=== PATIENT | male | born 1935 | race Caucasian/White ===

== ENCOUNTER → 2017-05-19 | Outpatient (CLI) | payer MEDICARE, OTHER ==
[~2017-05-19] MED LIST: ACY30T TP; ALB0.5 INH; ALB18R INH; ALBU8.5H IH; ALBUDR INH; ASP325 PO; ASPIRIN; ATOR10TA65 PO; ATOR20TA22 PO; ATOR20TA65 PO; AZIT-1 PO; AZIT-17 PO; CALC-852 PO; CEFU250 PO; CEPH500C24 PO; DIPH0.5D12 IM; DUL100/5PT INH; FISH OIL1 CAP PO; FLOMAX; FLU IM; FLUT16SP19 NS; FLUT50DI3 IH; GUAI600T57 PO; GUALA600 PO; HCTZ; HCTZ25 PO; HYDR-2966 PO; IPRA14.76 IH; IPRA3AMP21 IH; IPRA4AER IH; LANS15CA38 PO; LEV25 PO; LEVO-85 PO; LEVO250T55 PO; LEVO25TA57 PO; LEVO25TA61 PO; LEVO50TA86 PO; LISI5TAB25 PO; MOME8.8H2 INH; MULT-1 PO; OMEG-11 PO; PANT40TA65 PO; PRED-314 PO; PRED20TA6 PO; TAM4 PO; TAMS0.4C70 PO; TIO18R INH
--- NOTE | 2017-05-19 15:31 | RADIOLOGY IMAGING REPORT ---
[place] [facility] [place] Alexandr Barclay : 1935 MR: [id number] V: [id number] EXAM DATE: ORDERING PHYSICIAN: JAMESON WALSH TECHNOLOGIST: Location: [facility] Patient: Alexandr Barclay : 1935 Visit/Account:[id number] Date of Sevice: 05/19/2017 Exam type: CHEST PA AND LAT History: COPD, cough since Thursday Comparison: October 03, 2015. Findings: There is hyperinflation of the lung waggoner. There is no evidence of focal infiltrates, pleural effus ions or pulmonary edema.. The cardiac silhouette is normal in size. There is moderate ectasia the t horacic aorta. IMPRESSION: 1. Hyperinflation lung waggoner although no evidence of acute-appearing pulmonary consolidation Report Dictated By: Daly Rahman MD at 05/19/2017 3:25 PM Report E-Signed By: Daly Rahman MD at 05/19/2017 3:26 PM WSN:[email or web address]
== END ==
LOC: RAD 14:21
PROVIDERS: ATTEND Internal Medicine
DX: R91.8 Other nonspecific abnormal finding of lung field (principal)
CPT/HCPCS: 71046

== ENCOUNTER → 2017-06-26 | Outpatient (CLI) | payer MEDICARE, OTHER ==
--- NOTE | 2017-06-26 13:37 | RADIOLOGY IMAGING REPORT ---
FACILITY: [facility] - [place] PATIENT NAME: Alexandr Barclay : 1935 MR: [id number] V: [id number] EXAM DATE: ORDERING PHYSICIAN: JAMESON WALSH TECHNOLOGIST: Location: [facility] [place] Patient: Alexandr Barclay : 1935 Visit/Account:[id number] Date of Sevice: 06/26/2017 KIDNEYS EXAMINATION: Renal ultrasound. History: Chronic kidney disease COMPARISON STUDIES: FINDINGS: Kidneys: Right kidney- 9.9 x 6.3 x 4.7 cm Left kidney- 12.7 x 5.7 x 4.8 cm Uniform and symmetric blood flow in each kidney by Doppler ultrasound. Hydronephrosis: none There is a probably lobular 6.1 x 2.7 x 2.9 cm cyst upper pole of the right kidney. There is additio nal cortical cyst mid right kidney measuring 1.6 centers in diameter.. There is a 6.5 cm cyst upper pole the left kidney. Bladder: Prevoid volume 287 mL. Post void residual 6 mL. Bilateral ureteral jets Abdominal aorta and IVC: Aorta and IVC are patent by Doppler ultrasound. IMPRESSION: Bilateral renal cysts as described above Report Dictated By: Daly Rahman MD at 06/26/2017 1:30 PM Report E-Signed By: Daly Rahman MD at 06/26/2017 1:34 PM WSN:[email or web address]
== END ==
LOC: US 04:40
PROVIDERS: ATTEND Internal Medicine
DX: N28.1 Cyst of kidney, acquired (principal)
CPT/HCPCS: 36415; 76705; 82040; 82247; 82310; 82374; 82435; 82565; 82947; 84075; 84132; 84155; 84295; 84450; 84460; 84520

== ENCOUNTER → 2017-07-16 | Outpatient (CLI) | payer MEDICARE, OTHER ==
--- NOTE | 2017-07-20 08:45 | RADIOLOGY IMAGING REPORT ---
FACILITY: [facility] - [place] PATIENT NAME: PAYAL SILVERMAN : [id number] MR: [id number] V: [id number] EXAM DATE: [id number] ORDERING PHYSICIAN: LYN RUBI TECHNOLOGIST: Jeannie Ferrera EXAMINATION:TWO-DIMENSIONAL ECHOCARDIOGRAPH REASON:History of Hypertension, Chronic Kidney Disease and Edema. 2D Measurements (normal values in centimeters) LV endLV endRV endVent.LV PostAorticLeftPercent DiastolicSystolicDiastolicSeptumWallRootAtriumShortening (3.5-5.7)(0.9-2.6)(0.6-1.1)(0.6-1.1)(2.0-3.7)(1.9-4.0)(25-35%) [id number]% STROKE VOLUME: 78mL ESTIMATED EJECTION FRACTION: 67% on average. PARASTERNAL LONG AXIS: The view was somewhat techniquely difficult but overall left ventricular systolic function appears to be normal. The aortic valve and mitral valve both appear to open normally. Color examination of the valves reveals only a trace of mitral insufficiency and a trace of aortic insufficiency present. PARASTERNAL SHORT AXIS: Overall left ventricular function again appears to be within normal ranges. The aortic valve is trileaflet in configuration and appears to open normally. The pulmonic valve appears to open well. Color examination of the pulmonic valve was unremarkable. Color examination of the aortic valve was unremarkable in this view. APICAL FOUR AND TWO CHAMBER: Again left ventricular systolic function does appear to be within normal ranges. Right ventricle also appears to contract normally and the TAPSE is measured at 2.2. Left atrial and right atrial volumes are measured within normal ranges of 20 and 21ml/mt2. The aortic valve area and mitral valve area both measure within normal ranges at 3.3 and 3.3cm/2 respectively. Mild amount of tricuspid insufficiency is noted. Tricuspid regurgitation Vmax measured 3.45mt/2. Probable U station valve is noted in the right atrium. The right ventricle is mild to moderately enlarged. SUBCOSTAL VIEW: No pericardial effusion was noted. No atrioseptal or ventriculoseptal defects were appreciated. There does appear to be some hypokinesis along the basilar portion of the inter ventricular septum as measured by strain measurements. Doppler examination of the mitral valve in diastole does reveal the A wave > E wave. OVERALL IMPRESSION: 1. Normal left ventricular ejection fraction of 67% with a Grade 1 decrease in diastolic function. There appears to be some hypokinesis along the basilar portion of the septal and anterior walton. These walton were not akinetic. 2. Moderate right ventricular enlargement with the other chambers sizes being normal. 3. Trace of mitral insufficiency and aortic insufficiency present. No stenosis of the valves was noted. 4. A mild amount of tricuspid insufficiency is noted with estimated right ventricular systolic pressures of 51mm Hg which does include an estimated right atrial pressure of 3mm Hg indicating moderate pulmonary hypertension and increase right ventricular systolic pressures. Dictated by: Ciara Johnson M.D. on 07/16/2017 at 17:01 Transcribed by: UMA on 07/17/2017 at 13:20 Approved by: Ciara Johnson M.D. on 07/20/2017 at 8:43 [facility]
== END ==
LOC: US 01:10
PROVIDERS: ATTEND Internal Medicine Nephrology
DX: Q21.0 Ventricular septal defect (principal); I50.30 Unspecified diastolic (congestive) heart failure; I34.0 Nonrheumatic mitral (valve) insufficiency; I35.1 Nonrheumatic aortic (valve) insufficiency; I07.1 Rheumatic tricuspid insufficiency; I27.20 Pulmonary hypertension, unspecified; I12.9 Hypertensive chronic kidney disease with stage 1 through stage 4 chronic kidney disease, or unspecified chronic kidney disease; N18.3 Chronic kidney disease, stage 3 (moderate); R60.0 Localized edema; J43.8 Other emphysema
CPT/HCPCS: 36415; 82310; 82374; 82435; 82550; 82565; 82570; 82947; 83970; 84100; 84132; 84156; 84295; 84520; 93306

== ENCOUNTER → 2017-11-25 | Outpatient (CLI) | payer MEDICARE, OTHER ==
[~2017-11-25] MED LIST changes: +IPRA3AMP10 IH; -IPRA3AMP21 IH
[2017-11-25 13:03] LABS: PLATELET COUNT, AUTOMATED 167 K/uL (150-450)
== END ==
LOC: LAB 12:45
PROVIDERS: ATTEND Internal Medicine Nephrology
DX: I12.9 Hypertensive chronic kidney disease with stage 1 through stage 4 chronic kidney disease, or unspecified chronic kidney disease (principal); N18.3 Chronic kidney disease, stage 3 (moderate)
CPT/HCPCS: 36415; 81001; 82040; 82310; 82374; 82435; 82565; 82947; 84100; 84132; 84295; 84520; 85025

== ENCOUNTER 2018-08-12 09:00 | Outpatient (RCR) | payer MEDICARE, OTHER ==
[~2018-08-12 09:00] MED LIST changes: -DIPH0.5D12 IM; +DIPH0.5S2 IM
== END 2018-08-30 ==
LOC: CARD 09:00
PROVIDERS: ATTEND Internal Medicine
DX: J43.9 Emphysema, unspecified (principal)
CPT/HCPCS: G0424 ×20

== ENCOUNTER → 2018-11-01 | Outpatient (CLI) | payer MEDICARE, OTHER ==
[~2018-11-01] MED LIST changes: +BENZ200C15 PO; +FURO-45 PO; +PRED-420 PO; +TAMS0.4C25 PO
[2018-11-01 15:50] LABS: PLATELET COUNT, AUTOMATED 300 K/uL (150-450)
== END ==
LOC: LAB 15:11
PROVIDERS: ATTEND Internal Medicine
DX: R06.00 Dyspnea, unspecified (principal); J44.1 Chronic obstructive pulmonary disease with (acute) exacerbation; I10 Essential (primary) hypertension; R60.9 Edema, unspecified
CPT/HCPCS: 36415; 82040; 82247; 82310; 82374; 82435; 82565; 82947; 83880; 84075; 84132; 84155; 84295; 84443; 84450; 84460; 84520; 85025

== ENCOUNTER → 2018-11-01 | Outpatient (CLI) | payer MEDICARE, OTHER ==
--- NOTE | 2018-11-01 10:57 | RADIOLOGY IMAGING REPORT ---
FACILITY: [facility] - [place] PATIENT NAME: Alexandr Barclay : 1935 MR: [id number] V: [id number] EXAM DATE: ORDERING PHYSICIAN: JAMESON WALSH TECHNOLOGIST: Location: [facility] Patient: Alexandr Barclay : 1935 Visit/Account:[id number] Date of Sevice: 11/01/2018 2 VIEWS CHEST INDICATION: Cough one month COMPARISON: xray from 05/19/17 FINDINGS: Heart is stable. Pulmonary hyperinflation with minimal linear type atelectasis/scarring is seen in t he bases. Similar to prior exam. No infiltrate. No acute bony finding. IMPRESSION: 1. Hyperinflation with stable bibasilar atelectasis/scarring. No acute finding. Report Dictated By: Cuong Rojo MD at 11/01/2018 10:47 AM Report E-Signed By: Cuong Rojo MD at 11/01/2018 10:52 AM WSN:[email or web address]
== END ==
LOC: RAD 10:07
PROVIDERS: ATTEND Internal Medicine
DX: J20.9 Acute bronchitis, unspecified (principal); R05 Cough
CPT/HCPCS: 71046

== ENCOUNTER → 2018-11-15 | Outpatient (CLI) | payer MEDICARE, OTHER ==
[2018-11-15 16:35] LABS: PLATELET COUNT, AUTOMATED 158 K/uL (150-450)
== END ==
LOC: LAB 16:04
PROVIDERS: ATTEND Internal Medicine
DX: R60.9 Edema, unspecified (principal); R06.00 Dyspnea, unspecified; J44.9 Chronic obstructive pulmonary disease, unspecified; N18.9 Chronic kidney disease, unspecified
CPT/HCPCS: 36415; 82040; 82247; 82310; 82374; 82435; 82565; 82607; 82728; 82746; 82947; 83540; 83550; 84075; 84132; 84155; 84295; 84450; 84460; 84520; 85025